=== PATIENT | male | born 1950 ===

== ENCOUNTER 2021-05-07 09:39 | Emergency (ER) | payer OTHER ==
[~2021-05-07] VITALS: Ht 157.5 cm; Wt 55.3 kg
[2021-05-07] MEDS ORDERED: CRESTOR10 MG (09:47)
[2021-05-07] MEDS ORDERED: METFORMIN HCL500 M3 (09:47)
[2021-05-07] MEDS ORDERED: ZESTRIL2.5 MG (09:48)
[2021-05-07] MEDS ORDERED: BENADRYL25 MG PO (13:38)
[2021-05-07] MEDS ORDERED: ZYRTEC10 M3 PO (13:38)
[2021-05-07] MEDS ORDERED: MEDROLPACK PO (13:38)
== END 2021-05-07 14:20 | disposition home or self-care (01) ==
LOC: ER 09:39 → EDBD 10:51 → ER 10:51
DX: T78.3XXA Angioneurotic edema, initial encounter (principal)

== ENCOUNTER 2021-05-22 05:03 | Day surgery (SDC) | payer OTHER ==
[~2021-05-22 05:03] MED LIST: BENADRYL25 MG PO; CRESTOR10 MG; MEDROLPACK PO; METFORMIN HCL500 M3; ZESTRIL2.5 MG; ZYRTEC10 M3 PO
== END 2021-05-22 13:35 | disposition home or self-care (01) ==
LOC: CIR.AMB 05:03
PROVIDERS: ATTEND Specialist
DX: K40.91 Unilateral inguinal hernia, without obstruction or gangrene, recurrent (principal); Z20.822 Contact with and (suspected) exposure to COVID-19